=== PATIENT | male | born 2005 | race Caucasian/White ===

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

== ENCOUNTER 2025-05-06 19:40 | Emergency (ER) | payer BC, SELFPAY ==
[2025-05-06 19:42] VITALS: BMI 22.8
[2025-05-06 20:21] VITALS: BP 126/80; PULSE 81; RESP 19; TEMP 36.8; O2SAT 98
--- NOTE | 2025-05-06 20:24 | XR_ITS ---
Examination: Hand, left 3 views Technique: Hand AP, oblique, lateral 3 views Date and time of exam: May 06, 2025, 2027 hours INDICATIONS: Injury to the hand today with third and fourth digit pains. FINDINGS: No acute fracture. No dislocation No foreign body IMPRESSION: No acute fracture
--- NOTE | 2025-05-06 20:28 | XR_ITS ---
Examination: CT brain head without contrast. 2-D sagittal coronal reconstructions Date and time of exam: May 06, 2025, 2104 hours INDICATIONS: Patient fell today with injury to the head, head pain CTDI: vol (mGy): 47.7 DLP: (mGycm): 973 Technique: Multiple CT axial sections of the brain have been obtained, 5 mm slice thickness. Contrast has not been administered. 2-D sagittal, coronal reconstructions have been obtained Low dose protocols were performed. One or more of the following dose reduction techniques were used; automated exposure control, adjustment of the mA and/or KV according to patient size, use of iterative reconstruction technique. Findings: No significant ventricular enlargement. Intra-axial or extra-axial hemorrhage density is not seen. No mass effect or midline shift Basal cisterns are not remarkable. Fourth ventricle is midline. Cranial vault intact. Impression: Negative for acute hemorrhage, mass effect or midline shift
--- NOTE | 2025-05-06 20:29 | EDNOTE_ITS ---
ED Fall Injury RME/HPI General Chief Complaint: Fall Stated Complaint: FELL INTO HOLE AT WORK, HEAD INJURY, LEFT EXT PAIN Time Seen by Provider: 05/06/25 20:23 Arrival date/time: 05/06/25 19:40 19M with history of asthma presents to ED for evaluation after accidentally falling into a deep hole. Patient complains of L head, L shoulder, L elbow, and L hand pain. Patient denies LOC, AMS, seizures, and vision changes. Some N/V. Nothing coming out of ears/nose. Patient is UTD on tetanus. Limitations: no limitations Related Data Allergies Allergy/AdvReac Type Severity Reaction Status Date / Time No Known Allergies Allergy Verified 05/06/25 19:42 Review of Systems Review of Systems Systems Reviewed: All systems reviewed, normal except as documented Constitutional Constitutional: Reports as per HPI and Reports headache(s) ENT Ears, Nose, Mouth, and Throat: Reports headache(s) Gastrointestinal Gastrointestinal: Reports as per HPI, Reports nausea and Reports vomiting Musculoskeletal Musculoskeletal: Reports as per HPI and Reports arthralgias Neurologic Neurologic: Reports headache(s) Past Medical History Past Medical History CARDIAC: Negative Congestive Heart Failure RESPIRATORY: Positive Asthma; Negative Chronic Obstructive Pulmonary Disease (COPD) GENITOURINARY: Negative Renal Disease ENDOCRINE: Negative Diabetes Mellitus Type 1 or Diabetes Mellitus Type 2 Social History SMOKING STATUS: Never smoker ED Exam General Limitations: Present no limitations General appearance: Present alert and in no apparent distress Expanded Head Exam Head exam physical: Present abrasion (L-side of face) Eye Eye exam: Present normal appearance, PERRL and EOMI Neck Neck exam: Present normal inspection, full ROM and trachea midline Chest Chest inspection: Present normal inspection and symmetric chest wall rise Extremities Exam Extremities exam: Present full ROM Expanded Upper Extremity Exam Hand exam: Present full ROM and tenderness (L 3rd and 4th fingers) Neurological Exam Neurological exam: Present alert and oriented X3 Psychiatric Psychiatric exam: Present normal affect and normal mood Skin Skin exam: Present warm, dry, intact and normal color Course Quality Measures none Orders Category Date Time Status Wound Care NOW Care 05/06/25 20:[address] head/brain wo con Stat Exams 05/06/25 20:28 Completed XR hand comp LT min 3V Stat Exams 05/06/25 20:24 Completed Vital Signs Vital signs: Vital Signs Temperature 98.2 F 05/06/25 20:21 Pulse Rate 81 05/06/25 20:21 Respiratory Rate 19 05/06/25 20:21 Blood Pressure 126/80 05/06/25 20:21 Pulse Oximetry (%) 98 05/06/25 20:21 Oxygen Delivery Method Room Air 05/06/25 20:21 O2 at 98% on RA and WNLs Fall MDM Narrative MDM Narrative:: 19M with history of asthma presents to ED for evaluation after accidentally falling into a deep hole. Patient complains of L head, L shoulder, L elbow, and L hand pain. Patient denies LOC, AMS, seizures, and vision changes. Some N/V. Nothing coming out of ears/nose. Patient is UTD on tetanus. Physical exam reveals mild skin abrasions on L side of face. Normal pupil response and EOM. No gross head trauma. Neck ROM intact. LUE extremity ROM intact. Some L hand tenderness around 3rd and 4th fingers. ROM intact. Speech normal. Gait normal. Normal WOB. Patietn is afebrile, calm, and alert. Wound cleaned and bandaged. CT and XR unremarkable. Patient data External records reviewed:: [facility] previous records Clinical information provided by:: patient Social determinants that could affect healthcare access:: none Patient has the following chronic illnesses:: asthma How is presenting disease/condition affected by chronic disease/condition?: uneffected by Evaluation data The following diagnostics were reviewed and interpreted by me:: radiology exam(s) Lab and/or radiology exams considered but not ordered:: ordered Interpretation Summary: above Medications / Prescriptions Medications or Prescriptions considered but not ordered:: not ordered Medication administrations:: n/a Consultations Consultation(s) initiated? (list below): No Diagnosis Fall Differential Diagnosis: syncope, dislocation of shoulder region, fracture of wrist, compression fracture, concussion with loss of consciousness, concussion without loss of consciousness and other (skin abrasion, joint pain, CHI) Most likely diagnosis given after review of the tests above:: skin abrasion, CHI Admission Indicated Admission indicated?: not indicated Admission Request Was there a request for admission?: No Disposition Plan Disposition Plan: Discharge Discharge Attestation Discharge Attestation: The patient and all family members were given an opportunity to ask questions and understood the discharge instructions. Discharge instructions specifically effects, indications for sooner follow up or return to the emergency department, and the expected course of current diagnosis. Patient condition: Stable Discharge Plan Plan Patient Disposition: HOME (Self Care) Discharge Disposition comment: Stable Prescriptions/Referrals Referrals: Rodriguez Torres MD [Primary Care Provider, Family Practice] - In 1 week Problem List Clinical Impression: Closed head injury, Contusion of hand Patient/Caregiver Discharge Instructions Education Materials: ED Hand Contusion, ED Head Injury with Sleep ... Additional Instructions: Please follow-up with PCP within 24-48 hours and return immediately if symptoms worsen. If problem persists, recommend outpatient PT and/or MRI follow-up. In the meantime, rest, use ice/heat, and/or compression. Print Language: Algerian Stand Alone Forms: Patient Portal Info Letter PA/CLASSIFICATION ANALYST Supervising Physician LOURDES/DG Supervising Physician: Dr. Montague
== END 2025-05-06 21:49 | disposition home or self-care (01) ==
PROVIDERS: Emergency Provider Emergency Medicine; PCP Family Medicine
DX: S09.90XA Unspecified injury of head, initial encounter (principal); S60.229A Contusion of unspecified hand, initial encounter; J45.909 Unspecified asthma, uncomplicated; G44.309 Post-traumatic headache, unspecified, not intractable; W17.2XXA Fall into hole, initial encounter; Y99.0 Civilian activity done for income or pay
CPT/HCPCS: 90715; 70450; 73130; 99284